=== PATIENT | male | born 1990 | race Hispanic/Latino ===

== ENCOUNTER 2017-09-14 12:20 | Emergency (ER) | payer SELFPAY ==
[2017-09-14] MEDS ORDERED: Fentanyl 100 MCG/2 ML VIAL ONE (12:49)
[2017-09-14 13:00] LABS: #Eosinphils 0.1 thou/uL (0.0-0.7); #Lymphocytes 1.6 thou/uL (1.20-3.40); #Monocytes 0.5 thou/uL (0.11-0.59); #Neutrophils 6.5 thou/uL (1.40-6.50); %Basophils 0.1 % (0.0-1.0); %Eosinophils 0.8 % (0.0-10.0); %Lymphocytes 18.3 % (21.0-51.0); %Monocytes 5.2 % (0.0-10.0); Mean Platelet Volume 7.3 fL (7.4-10.4); Red Blood Cell (RBC) Count 5.05 mill/uL (4.70-6.10); White Blood Cell (WBC) Count 8.6 thou/uL (4.8-10.8)
[2017-09-14 13:08] LABS: PTT 28.3 SEC (22.9-36.1); Prothrombin Time 13.1 SEC (12.0-14.7)
[2017-09-14 13:12] LABS: Anion Gap 13 mmol/L (10-20); BUN (Urea Nitrogen) 14 mg/dL (8.9-20.6); Calc. Creatinine Clearance 0 mL/min (70-130); Calcium 9.6 mg/dL (7.8-10.44); Carbon Dioxide 26 mmol/L (22-29); Chloride 101 mmol/L (98-107); Estimated GFR-MDRD Greater than 90
[2017-09-14] MEDS ORDERED: ISOVUE-370 76%-LOCM 1 ML ONE (13:53)
--- NOTE | 2017-09-14 14:00 | CT ---
CT OF THE CHEST AND ABDOMEN AND PELVIS WITH IV CONTRAST: Date: 09/14/17 INDICATION: Fall from one story height, landing on left side, with left-sided pain. COMPARISON: None. FINDINGS: There is some subsegmental atelectasis within both lower lobes. No pneumothorax is evident. No contus ion is demonstrated. The liver, spleen, pancreas, adrenal glands, and kidneys appear intact. No free fluid is evident. The unopacified large and small bowel appear within normal limits. No displaced rib fracture is evident. No acute fracture or subluxation is seen involving the thoracic or lumbar spine. The pelvis appears intact. IMPRESSION: No definite acute traumatic abnormality seen involving the chest, abdomen, and pelvis. POS: [facility]
== END 2017-09-14 14:11 | disposition home or self-care (01) ==
LOC: ERS 12:20
DX: S20.212A Contusion of left front wall of thorax, initial encounter (principal); F17.210 Nicotine dependence, cigarettes, uncomplicated; W11.XXXA Fall on and from ladder, initial encounter
CPT/HCPCS: 36415; 71260; 74177; 80048; 85025; 85610; 85730; 86850; 86900; 86901; 96374; J3010